=== PATIENT | male | born 1990 | race Caucasian/White ===

== ENCOUNTER 2019-07-11 19:34 | Inpatient (IN) | payer BC, OTHER ==
[2019-07-11] MEDS ORDERED: ONDANSETRON 4 MG TAB.RAPDIS PO ONE (20:14)
[2019-07-11] MEDS ORDERED: NORMAL SALINE 1000 ML 1,000 ML IV ONE (20:15)
--- NOTE | 2019-07-11 20:16 | ER Document Report ---
ED Medical Screen (RME) - General Stated Complaint: VOMITING,DIZZINESS,WEAKNESS,TROUBLE BREATHING Time Seen by Provider: 07/11/19 20:10 Primary Care Provider: ROEL EASTMAN DPM [Primary Care Provider] - Follow up as needed Mode of Arrival: Wheelchair Information source: Patient Notes: 29-year-old male with no past medical history presents emergency department with reports that he is vomited at least 6-8 times today. Reports symptoms started all of a sudden this afternoon when he was just sitting at home.. Reports he feels short of breath. EKG shows sinus tach. Denies fever although he feels warm. Denies diarrhea but his stomach feels like it may start having diarrhea. Reports his mom was sick a week ago with same symptoms. Has not had his flu vaccine. I have greeted and performed a rapid initial assessment of this patient. A comprehensive ED assessment and evaluation of the patient, analysis of test results and completion of the medical decision making process will be conducted by additional ED providers. Dictation of this chart was performed using voice recognition software; therefore, there may be some unintended grammatical errors. Doctor's Discharge - Discharge Referrals: ROEL EASTMAN DPM [Primary Care Provider] - Follow up as needed
[2019-07-11 21:09] LABS: HEMATOCRIT 49.2 % (37.9-51.0); HEMOGLOBIN 17.1 g/dL (13.5-17.0); MEAN CORPUSCULAR HEMOGLOBIN 32.4 pg (27.0-33.4); MEAN CORPUSCULAR HGB CONC 34.7 g/dL (32.0-36.0); MEAN CORPUSCULAR VOLUME 93 fl (80-97); PLATELET COUNT 230 10^3/uL (150-450); RED BLOOD COUNT 5.27 10^6/uL (4.35-5.55); RED CELL DISTRIBUTION WIDTH 13.3 % (11.5-14.0); WHITE BLOOD COUNT 8.6 10^3/uL (4.0-10.5)
--- NOTE | 2019-07-11 21:09 | RADIOLOGY REPORT (SQ) ---
EXAM DESCRIPTION: XR CHEST 2 VIEWS COMPLETED DATE/TME: 07/11/2019 20:15 CLINICAL HISTORY: 29 years, Male, sob COMPARISON: None. NUMBER OF VIEWS: Two TECHNIQUE: Frontal and lateral radiographs of the chest were obtained LIMITATIONS: None. FINDINGS: Cardiac and mediastinal contours are normal in appearance. Lungs are clear. No pleural effusion or pneumothorax. IMPRESSION: No acute disease. copyright 2010 [facility]- All Rights Reserved
[2019-07-11 21:19] LABS: A TYPE INFLUENZA AG NEGATIVE (NEGATIVE); B INFLUENZA AG NEGATIVE (NEGATIVE)
[2019-07-11] MEDS ORDERED: NORMAL SALINE IV ONE (21:20)
[2019-07-11 21:21] LABS: ALBUMIN 4.7 g/dL (3.5-5.0); ALKALINE PHOSPHATASE 60 U/L (38-126); ANION GAP 19 (5-19); ASPARTATE AMINO TRANSFERASE 28 U/L (17-59); BILIRUBIN,DIRECT 0.1 mg/dL (0.0-0.4); BLOOD UREA NITROGEN 21 mg/dL (7-20); CALCIUM 10.2 mg/dL (8.4-10.2); CARBON DIOXIDE 19 mmol/L (22-30); CHLORIDE 104 mmol/L (98-107); GLUCOSE 122 mg/dL (75-110); POTASSIUM 3.9 mmol/L (3.6-5.0); TOTAL PROTEIN 7.7 g/dL (6.3-8.2)
--- NOTE | 2019-07-11 21:31 | ER Document Report ---
ED General - General Chief Complaint: Nausea/Vomiting Stated Complaint: VOMITING,DIZZINESS,WEAKNESS,TROUBLE BREATHING Time Seen by Provider: 07/11/19 20:10 Primary Care Provider: ROEL EASTMAN DPM [ACTIVE STAFF] - Follow up as needed Mode of Arrival: Wheelchair TRAVEL OUTSIDE OF THE [place] IN LAST 30 DAYS: No - HPI Notes: Mr. Mota is a 29-year-old male with a chief complaint of generalized weakness nausea vomiting and diarrhea. This is a generally healthy male who is visiting his father who is an inpatient in this facility being treated in the ICU for urinary tract infection when he suddenly became ill and had to go into the bathroom and vomited twice. He attempted to drive himself home and had further episodes of vomiting and then had several loose watery stools. He feels generally weak and decided that he needed attention and came back to the emergency department. The patient takes some [id number] vitamins and is otherwise taking no regular medications. He says he is allergic to some type of a dental anesthetic agent. No other known allergies. He has a history of severe psoriasis but is no longer taking any type of medication for this. He denies any other past significant illnesses. - Related Data Allergies/Adverse Reactions: mepivacaine Allergy (Verified 07/11/19 20:38) Past Medical History - General Information source: Patient - Social History Smoking Status: Never Smoker Chew tobacco use (# tins/day): No Frequency of alcohol use: None Drug Abuse: None Family History: Reviewed & Not Pertinent Patient has suicidal ideation: No Patient has homicidal ideation: No Skin Medical History: Reports Hx Psoriasis Review of Systems - Review of Systems Notes: Constitutional: Low-grade tactile fever after his GI symptoms began this afternoon. Generalized weakness. HENT: Negative for sore throat. Eyes: Negative for visual changes. Cardiovascular: Negative for chest pain. Respiratory: Dry cough. Negative for shortness of breath. Gastrointestinal: As per HPI. Genitourinary: Negative for dysuria. Musculoskeletal: Negative for back pain. Skin: Chronic psoriatic rash. Neurological: Negative for headaches, focal weakness or numbness. 10 point ROS negative except as marked above and in HPI. Physical Exam - Vital signs Vitals: Temp Pulse Resp BP Pulse Ox 98.4 F 144 H 24 H 97/65 L 100 07/11/19 20:07 07/11/19 20:07 07/11/19 20:07 07/11/19 20:07 07/11/19 20:07 - Notes Notes: GENERAL: Slender male of approximately stated age who appears pale and acutely ill. SKIN: Pale and cool to touch. Prominent chronic psoriatic rash especially over the scalp and hairline and over the left external ear. HEAD: Normocephalic atraumatic. EYES: PERRLA. Conjunctivae and sclerae clear. EARS: CANALS AND TMS CLEAR. NOSE: CLEAR. MOUTH: Tacky oral mucosa. Good dentition. No stridor or edema. No drooling. Throat: Injected. NECK: Supple. No masses or thyromegaly. No adenopathy. Carotids 2+ without bruits. No JVD. BACK: Symmetrical without tenderness. CHEST: Respirations unlabored. Breath sounds clear and symmetrical. HEART: Tachycardic. Regular rhythm. No murmur gallop or rub. ABDOMEN: Soft nontender without masses, organomegaly or rebound. Bowel sounds hyperactive. No bruits. GENITALIA: Deferred. EXTREMITIES: No edema. No calf tenderness. Cap refill less than 1.5 seconds. Dorsalis pedis and posterior tibial pulses 2+ and symmetrical. NEUROLOGICAL: GCS 15. Alert and oriented x3. Normal gait. Fluent speech. Cranial nerves II through XII intact. Sensorimotor and cerebellar normal. Normal tone. Psychiatric: Anxious. Course - Vital Signs Vital signs: Temp Pulse Resp BP Pulse Ox 101 F H 127 H 19 96/44 L 100 07/11/19 23:05 07/11/19 20:57 07/11/19 22:44 07/11/19 22:44 07/11/19 22:44 - Laboratory Result Diagrams: 07/11/19 20:42 07/11/19 20:42 Laboratory results interpreted by me: 07/11/19 07/11/19 07/11/19 20:42 20:42 21:40 Hgb 17.1 H Seg Neuts % (Manual) 82 H Band Neutrophils % 7 H Lymphocytes % (Manual) 5 L PT VBG pH VBG pCO2 VBG HCO3 Carbon Dioxide 19 L BUN 21 H Glucose 122 H Lactic Acid (Sepsis) 6.4 H 07/11/19 07/11/19 21:40 21:55 Hgb Seg Neuts % (Manual) Band Neutrophils % Lymphocytes % (Manual) PT 17.7 H VBG pH 7.63 H VBG pCO2 18.3 L* VBG HCO3 18.7 L Carbon Dioxide BUN Glucose Lactic Acid (Sepsis) Critical Care Note - Critical Care Note Total time excluding time spent on procedures (mins): 75 Comments: This young man presented with sepsis. Source is undetermined although I am suspicious that this is probably staphylococcal infection from the scan as he has widespread psoriasis and is been otherwise healthy. He has a markedly elevated lactate level and his CO2 is low. Blood cultures have been drawn. He was transiently hypotensive but his blood pressure has been restored with IV fluid bolus 30 cc/kg normal saline. Flu swab was negative. His total white count is normal but he has a 7% bandemia. He has been empirically treated with IV vancomycin and Zosyn. His systolic pressure is 95. His pulse pressure still widened with a diastolic of 44. Case was discussed with Dr. Norbert Brownlee on-call for ICU and is agreed that patient will be admitted to the ICU. Discharge - Discharge Clinical Impression: Sepsis Qualifiers: Sepsis type: sepsis due to unspecified organism Sepsis acute organ dysfunction status: unspecified Qualified Code(s): A41.9 - Sepsis, unspecified organism Condition: Serious Disposition: ADMITTED INPATIENT Admitting Provider: [facility] Admitted: ICU Referrals: ROEL EASTMAN DPM [ACTIVE STAFF] - Follow up as needed
[2019-07-11 21:41] LABS: ABSOLUTE LYMPHOCYTES# (MANUAL) 0.6 10^3/uL (0.5-4.7); ABSOLUTE MONOCYTES # (MANUAL) 0.3 10^3/uL (0.1-1.4); BAND NEUTROPHILS % (MANUAL) 7 % (3-5); BASOPHILS % (MANUAL) 0 % (0-2); EOSINOPHILS % (MANUAL) 0 % (0-6); LYMPHOCYTES % (MANUAL) 5 % (13-45); MONOCYTES % (MANUAL) 4 % (3-13); SEGMENTED NEUTROPHILS % (MAN) 82 % (42-78); TOTAL CELLS COUNTED 100
[2019-07-11 21:42] LABS: PLATELET COMMENT ADEQUATE; RBC MORPHOLOGY COMMENT NORMO-CYTIC/CHROMIC
[2019-07-11] MEDS ORDERED: PIPERACILLIN/TAZOBACTAM 3.375 GM VIAL IV ONE (21:54)
[2019-07-11] MEDS ORDERED: VANCOMYCIN HCL INJ 1000 MG VIAL IV ONE (21:54)
[2019-07-11 22:14] LABS: VENOUS BLOOD BASE EXCESS 0.6 mmol/L; VENOUS BLOOD HCO3 18.7 mmol/L (20-32); VENOUS BLOOD PH 7.63 (7.30-7.42)
[2019-07-11 22:16] LABS: INTERNATIONAL RATION (INR) 1.44; PROTHROMBIN TIME 17.7 SEC (11.4-15.4)
[2019-07-11 22:16] LABS: VENOUS BLOOD PCO2 18.3 mmHg (35-63)
[2019-07-11] MEDS ORDERED: NORMAL SALINE 1000 ML 1,000 ML IV PRN (22:49)
[2019-07-11] MEDS ORDERED: METOCLOPRAMIDE HCL INJ/PF 10 MG/2 ML SDV IV ONE (23:09)
[2019-07-11] MEDS ORDERED: ACETAMINOPHEN 325 MG TABLET PO ONE (23:11)
[2019-07-11 23:51] LABS: APPEARANCE,URINE SLIGHTLY-CLOUDY; BILIRUBIN,URINE NEGATIVE (NEGATIVE); COLOR,URINE YELLOW; GLUCOSE, URINE NEGATIVE (NEGATIVE); KETONES,URINE 80 mg/dL (NEGATIVE); LEUKOCYTE ESTERASE,URINE NEGATIVE (NEGATIVE); NITRITE,URINE NEGATIVE (NEGATIVE); PROTEIN,URINE NEGATIVE (NEGATIVE); URINE SPECIFIC GRAVITY 1.021; UROBILINOGEN,URINE NEGATIVE mg/dL (<2.0)
[2019-07-12] MEDS ORDERED: DEXTROSE 5%-WATER 250 ML with NOREPINEPHRINE BITARTRATE 4 MG IV PRN ×2 (00:11)
[2019-07-12] MEDS ORDERED: NOREPINEPHRINE BITARTRATE INJ/PF 4 MG/4 ML SDV IV ONE (00:15)
[2019-07-12] MEDS ORDERED: NORMAL SALINE 1000 ML 1,000 ML IV PRN (01:06)
[2019-07-12] MEDS ORDERED: PIPERACILLIN/TAZOBACTAM 3.375 GM VIAL IV ONE (01:17)
[2019-07-12] MEDS ORDERED: VANCOMYCIN HCL INJ 1000 MG VIAL IV ONE (01:18)
--- NOTE | 2019-07-12 02:46 | CRITICAL CARE ADMISSION REPORT ---
<FEROZ DEWITT - Last Filed: 07/12/19 02:15> HPI Date:: 07/12/19 Time:: 01:15 Reason for ICU Reason:: Septic Shock HPI: 29-year-old gentleman with a history only of psoriasis. He presented to the ED with nausea vomiting and general malaise. Patient was found to be hypotensive with a lactate of 6.4 and HCO3 of 19. He was also febrile to 102 and mildly tachycardic. While in the emergency department, he received normal saline as well as norepinephrine but remained hypotensive. Upon transfer to the intensive care unit, patient's blood pressure began to improve slightly and now has a MAP of 67. Earlier, in the ED, he is stated that he felt short of breath but has had no difficulty breathing and has required no supplemental oxygen. X-ray shows no infiltrates and breath sounds remain clear. History obtained from:: Patient and his mother. - Diagnosis/Plan (1) Sepsis Qualifiers: Sepsis type: sepsis due to unspecified organism Sepsis acute organ dysfunction status: with acute organ dysfunction Severe sepsis acute organ dysfunction type: unspecified Severe sepsis shock status: with septic shock Qualified Code(s): A41.9 - Sepsis, unspecified organism; R65.21 - Severe sepsis with septic shock Is this a current diagnosis for this admission?: Yes Plan: Septic shock: Maintain mean arterial pressure greater or equal to 70 mmHg. Continue norepinephrine. If escalating dose required, family has consented to central line placement. Current access is large bore antecubital line. Administer 1 L normal saline and start LR at 150 mL an hour. Continue Vancomycin and Zosyn. Will also check cortisone level and replete if needed. Past Medical History Skin Medical History: Reports: Psoriasis Social/Family History - Social History Smoking Status: Never Smoker - Medication/Allergies Allergies/Adverse Reactions: mepivacaine Allergy (Verified 07/11/19 20:38) Physical Exam Vital Signs: Temp Pulse Resp BP Pulse Ox 102.6 F H 127 H 14 87/39 L 94 07/12/19 00:09 07/11/19 20:57 07/12/19 00:01 07/12/19 00:01 07/12/19 00:01 Intake & Output 07/10/19 07/11/19 07/12/19 06:59 06:59 06:59 Intake Total 2620 Balance 2620 Weight 54 kg Weight/Height Weight 54 kg Height 5 ft 8 in Laboratory/Radiographs Laboratory Results: 07/11/19 20:42 07/11/19 20:42 07/11/19 07/11/19 07/11/19 20:42 20:42 21:40 WBC 8.6 RBC 5.27 Hgb 17.1 H Hct 49.2 MCV 93 MCH 32.4 MCHC 34.7 RDW 13.3 Plt Count 230 Seg Neutrophils % Not Reportable VBG pH 7.63 H VBG pCO2 18.3 L* VBG HCO3 18.7 L VBG Base Excess 0.6 Sodium 141.7 Potassium 3.9 Chloride 104 Carbon Dioxide 19 L Anion Gap 19 BUN 21 H Creatinine 0.99 Est GFR ( Amer) > 60 Glucose 122 H Calcium 10.2 Total Bilirubin 1.0 AST 28 Alkaline Phosphatase 60 Total Protein 7.7 Albumin 4.7 Urine Color Urine Appearance Urine pH Ur Specific [place] Urine Protein Urine Glucose (UA) Urine Ketones Urine Blood Urine Nitrite Ur Leukocyte Esterase Urine WBC (Auto) Urine RBC (Auto) 07/11/19 23:30 WBC RBC Hgb Hct MCV MCH MCHC RDW Plt Count Seg Neutrophils % VBG pH VBG pCO2 VBG HCO3 VBG Base Excess Sodium Potassium Chloride Carbon Dioxide Anion Gap BUN Creatinine Est GFR ( Amer) Glucose Calcium Total Bilirubin AST Alkaline Phosphatase Total Protein Albumin Urine Color YELLOW Urine Appearance SLIGHTLY-CLOUDY Urine pH 5.0 Ur Specific [place] 1.021 Urine Protein NEGATIVE Urine Glucose (UA) NEGATIVE Urine Ketones 80 H Urine Blood NEGATIVE Urine Nitrite NEGATIVE Ur Leukocyte Esterase NEGATIVE Urine WBC (Auto) 1 Urine RBC (Auto) 0 Impressions: Chest X-Ray 07/11/19 20:15 IMPRESSION: No acute disease. copyright 2010 [facility] [employer]- All Rights Reserved Critical Time Critical Time (minutes): 75 -: The care of a critically ill patient is dynamic. This note represents a static moment in the admission process. orders and treatments may be given s imulataneously and urgentl, and time is not provider service representative of the treatment process. This patient requires Critical Care secondary to life threating organ or limb dysfunction. Without the need for Critical Care services, the patient is at risk for increasid mortality and morbidity. <RADHA VIEYRA - Last Filed: 07/12/19 07:48> HPI - . Plan Summary: I personally saw and evaluated the patient in the ICU after admission by CLIFF Dewitt I agree with the findings plan and care. Please see my supplemental note which accompanies this admission note. Physical Exam Vital Signs: Temp Pulse Resp BP Pulse Ox 102.4 F H 94 12 105/56 L 100 07/12/19 06:00 07/12/19 00:47 07/12/19 06:19 07/12/19 06:19 07/12/19 06:19 Intake & Output 07/11/19 07/12/19 07/13/19 06:59 06:59 06:59 Intake Total 3806 Balance 3806 Weight 53.4 kg Weight/Height Weight 53.4 kg Height 5 ft 8 in Laboratory/Radiographs Laboratory Results: 07/11/19 20:42 07/11/19 20:42 07/11/19 07/11/19 07/11/19 20:42 20:42 21:40 WBC 8.6 RBC 5.27 Hgb 17.1 H Hct 49.2 MCV 93 MCH 32.4 MCHC 34.7 RDW 13.3 Plt Count 230 Seg Neutrophils % Not Reportable VBG pH 7.63 H VBG pCO2 18.3 L* VBG HCO3 18.7 L VBG Base Excess 0.6 Sodium 141.7 Potassium 3.9 Chloride 104 Carbon Dioxide 19 L Anion Gap 19 BUN 21 H Creatinine 0.99 Est GFR ( Amer) > 60 Glucose 122 H Calcium 10.2 Total Bilirubin 1.0 AST 28 Alkaline Phosphatase 60 Total Protein 7.7 Albumin 4.7 Urine Color Urine Appearance Urine pH Ur Specific [place] Urine Protein Urine Glucose (UA) Urine Ketones Urine Blood Urine Nitrite Ur Leukocyte Esterase Urine WBC (Auto) Urine RBC (Auto) 07/11/19 23:30 WBC RBC Hgb Hct MCV MCH MCHC RDW Plt Count Seg Neutrophils % VBG pH VBG pCO2 VBG HCO3 VBG Base Excess Sodium Potassium Chloride Carbon Dioxide Anion Gap BUN Creatinine Est GFR ( Amer) Glucose Calcium Total Bilirubin AST Alkaline Phosphatase Total Protein Albumin Urine Color YELLOW Urine Appearance SLIGHTLY-CLOUDY Urine pH 5.0 Ur Specific [place] 1.021 Urine Protein NEGATIVE Urine Glucose (UA) NEGATIVE Urine Ketones 80 H Urine Blood NEGATIVE Urine Nitrite NEGATIVE Ur Leukocyte Esterase NEGATIVE Urine WBC (Auto) 1 Urine RBC (Auto) 0 Impressions: Chest X-Ray 07/11/19 20:15 IMPRESSION: No acute disease. copyright 2010 [facility]- All Rights Reserved Critical Time -: The care of a critically ill patient is dynamic. This note represents a static moment in the admission process. orders and treatments may be given simulataneously and urgentl, and time is not provider service representative of the treatment process. This patient requires Critical Care secondary to life threating organ or limb dysfunction. Without the need for Critical Care services, the patient is at risk for increasid mortality and morbidity.
[2019-07-12] MEDS: ACETAMINOPHEN 325 MG TABLET PO PRN (06:25)
[2019-07-12] MEDS: ONDANSETRON HCL INJ/PF 4 MG/2 ML SDV IV PRN ×2 (06:47→18:00)
[2019-07-12] MEDS: RINGERS SOLUTION,LACTATED 1,000 ML IV PRN ×2 (06:52→22:21)
--- NOTE | 2019-07-12 08:03 | EKG REPORT ---
SEVERITY:- BORDERLINE ECG - SINUS TACHYCARDIA NONSPECIFIC ST-T CHANGES- INFERIOR LEADS : Confirmed by: Donaldo Holder MD 12-Jul-2019 08:03:11
--- NOTE | 2019-07-12 08:04 | EKG REPORT ---
SEVERITY:- ABNORMAL ECG - SINUS TACHYCARDIA DENISHA, CONSIDER BIATRIAL ABNORMALITIES NONSPECIFIC ST-T CHANGES- INFERIOR LEADS : Confirmed by: Donaldo Holder MD 12-Jul-2019 08:03:48
[2019-07-12] MEDS ORDERED: ALBUMIN HUMAN 500 ML IV ONE (09:00)
[2019-07-12 10:44] LABS: URINE AMPHETAMINES SCREEN NEGATIVE; URINE BARBITURATES SCREEN NEGATIVE; URINE BENZODIAZEPINES SCREEN NEGATIVE; URINE COCAINE SCREEN NEGATIVE; URINE MARIJUANA (THC) SCREEN NEGATIVE; URINE METHADONE SCREEN NEGATIVE; URINE PHENCYCLIDINE SCREEN NEGATIVE
[2019-07-12 11:25] LABS: ARTERIAL BLOOD H2CO3 1.13 mmol/L (1.05-1.35); ARTERIAL BLOOD HCO3 22.5 mmol/L (20-24); ARTERIAL BLOOD PCO2 37.5 mmHg (35-45); ARTERIAL BLOOD PO2 108.3 mmHg (80-100); ARTERIAL BLOOD TOTAL CO2 23.7 mmol/L (23-27)
[2019-07-12 11:26] LABS: ARTERIAL BLOOD FIO2 ROOM AIR
[2019-07-12] MEDS: HEPARIN SOD (PORCINE) 5,000 UNIT/ML 1 ML VIAL SUBCUT SCH ×2 (12:33→22:18)
--- NOTE | 2019-07-12 13:14 | Progress Note ---
Provider Note Provider Note: Sepsis admission follow-up Progress Note Patient seen in follow-up after admission for hypotension, tachycardia, and lactic acidosis noticed with sepsis and shock. From a mental status standpoint he is not encephalopathic and is at his baseline mental status. His lactic acidosis has resolved. He is making urine and has had no evidence for acute renal failure. Repeat ABG shows solve of alkalosis in the first ABG may have been spurious. His blood pressure is still low normal and he is been given an additional dose of albumin with overall improvement. No source has been found but the expectation is that he will have gram-positive bacteremia. Patient has significant crisis however none of his lesions appear to be erythematous or infected. No other source has been determined. On examination patient has no spinous process tenderness. No sinus discharge, no pharyngeal erythema. No evidence for nuchal rigidity or meningismus. Heart shows regular rate and rhythm no audible murmur or gallops. Lungs are clear to auscultation. Abdomen is soft nontender nondistended no distinct tenderness no masses no organomegaly. Skin shows moderate psoriatic plaques on the dorsal surfaces of the forearms. No erythema discharge. There is no mottling discoloration rashes or mottling. Pulses are 2+/2+ in both the upper and lower extremities. Neurologic shows no encephalopathy. Patient has quiet flat affect. Fouzia Coma Scale is 15 Patient is on broad-spectrum antibiotics including vancomycin. Temp Pulse Resp BP Pulse Ox 98.7 F 80 12 98/63 L 100 07/12/19 12:00 07/12/19 12:00 07/12/19 12:00 07/12/19 12:00 07/12/19 12:00 Intake & Output 07/11/19 07/12/19 07/13/19 06:59 06:59 06:59 Intake Total 3806 1238 Output Total 600 Balance 3806 638 Weight 53.4 kg Weight/Height Weight 53.4 kg Height 5 ft 8 in Follow-up labs Labs- All tests 24 hr 07/11/19 07/11/19 07/11/19 20:42 20:42 20:42 WBC 8.6 RBC 5.27 Hgb 17.1 H Hct 49.2 MCV 93 MCH 32.4 MCHC 34.7 RDW 13.3 Plt Count 230 Lymph % (Auto) Not Reportable [place] % (Auto) Not Reportable Eos % (Auto) Not Reportable Baso % (Auto) Not Reportable Absolute Neuts (auto) Not Reportable Absolute Lymphs (auto) Not Reportable Absolute Monos (auto) Not Reportable Absolute Eos (auto) Not Reportable Absolute Basos (auto) Not Reportable Total Counted 100 Seg Neutrophils % Not Reportable Seg Neuts % (Manual) 82 H Band Neutrophils % 7 H Lymphocytes % (Manual) 5 L Atypical Lymphs % 2 Monocytes % (Manual) 4 Eosinophils % (Manual) 0 Basophils % (Manual) 0 Abs Neuts (Manual) 7.7 Abs Lymphs (Manual) 0.6 Abs Monocytes (Manual) 0.3 Absolute Eos (Manual) 0.0 Abs Basophils (Manual) 0.0 Platelet Comment ADEQUATE RBC Morph Comment NORMO-CYTIC/CHROMIC PT INR Carbonic Acid HCO3/H2CO3 Ratio ABG pH ABG pCO2 ABG pO2 ABG HCO3 ABG Total CO2 ABG O2 Saturation ABG Base Excess VBG pH VBG pCO2 VBG HCO3 VBG Base Excess FiO2 Sodium 141.7 Potassium 3.9 Chloride 104 Carbon Dioxide 19 L Anion Gap 19 BUN 21 H Creatinine 0.99 Est GFR ( Amer) > 60 Est GFR (MDRD) Non-Af > 60 Glucose 122 H POC Glucose Lactic Acid (Sepsis) Calcium 10.2 Total Bilirubin 1.0 Direct Bilirubin 0.1 Neonat Total Bilirubin Not Reportable Neonat Direct Bilirubin Not Reportable Neonat Indirect Bili Not Reportable AST 28 ALT 25 Alkaline Phosphatase 60 Total Protein 7.7 Albumin 4.7 Random Cortisol Urine Color Urine Appearance Urine pH Ur Specific [place] Urine Protein Urine Glucose (UA) Urine Ketones Urine Blood Urine Nitrite Urine Bilirubin Urine Urobilinogen Ur Leukocyte Esterase Urine WBC (Auto) Urine RBC (Auto) U Hyaline Cast (Auto) Squamous Epi Cells Auto Urine Mucus (Auto) Urine Ascorbic Acid Urine Opiates Screen Urine Methadone Screen Ur Barbiturates Screen Ur Phencyclidine Scrn Ur Amphetamines Screen U Benzodiazepines Scrn Urine Cocaine Screen U Marijuana (THC) Screen Influenza A (Rapid) NEGATIVE Influenza B (Rapid) NEGATIVE 07/11/19 07/11/19 07/11/19 20:53 20:53 21:40 WBC RBC Hgb Hct MCV MCH MCHC RDW Plt Count Lymph % (Auto) [place] % (Auto) Eos % (Auto) Baso % (Auto) Absolute Neuts (auto) Absolute Lymphs (auto) Absolute Monos (auto) Absolute Eos (auto) Absolute Basos (auto) Total Counted Seg Neutrophils % Seg Neuts % (Manual) Band Neutrophils % Lymphocytes % (Manual) Atypical Lymphs % Monocytes % (Manual) Eosinophils % (Manual) Basophils % (Manual) Abs Neuts (Manual) Abs Lymphs (Manual) Abs Monocytes (Manual) Absolute Eos (Manual) Abs Basophils (Manual) Platelet Comment RBC Morph Comment PT INR Carbonic Acid HCO3/H2CO3 Ratio ABG pH ABG pCO2 ABG pO2 ABG HCO3 ABG Total CO2 ABG O2 Saturation ABG Base Excess VBG pH VBG pCO2 VBG HCO3 VBG Base Excess FiO2 Sodium Potassium Chloride Carbon Dioxide Anion Gap BUN Creatinine Est GFR ( Amer) Est GFR (MDRD) Non-Af Glucose POC Glucose 99 Lactic Acid (Sepsis) 6.4 H Calcium Total Bilirubin Direct Bilirubin Neonat Total Bilirubin Neonat Direct Bilirubin Neonat Indirect Bili AST ALT Alkaline Phosphatase Total Protein Albumin Random Cortisol 58.90 Urine Color Urine Appearance Urine pH Ur Specific [place] Urine Protein Urine Glucose (UA) Urine Ketones Urine Blood Urine Nitrite Urine Bilirubin Urine Urobilinogen Ur Leukocyte Esterase Urine WBC (Auto) Urine RBC (Auto) U Hyaline Cast (Auto) Squamous Epi Cells Auto Urine Mucus (Auto) Urine Ascorbic Acid Urine Opiates Screen Urine Methadone Screen Ur Barbiturates Screen Ur Phencyclidine Scrn Ur Amphetamines Screen U Benzodiazepines Scrn Urine Cocaine Screen U Marijuana (THC) Screen Influenza A (Rapid) Influenza B (Rapid) 07/11/19 07/11/19 07/11/19 21:40 21:55 23:30 WBC RBC Hgb Hct MCV MCH MCHC RDW Plt Count Lymph % (Auto) [place] % (Auto) Eos % (Auto) Baso % (Auto) Absolute Neuts (auto) Absolute Lymphs (auto) Absolute Monos (auto) Absolute Eos (auto) Absolute Basos (auto) Total Counted Seg Neutrophils % Seg Neuts % (Manual) Band Neutrophils % Lymphocytes % (Manual) Atypical Lymphs % Monocytes % (Manual) Eosinophils % (Manual) Basophils % (Manual) Abs Neuts (Manual) Abs Lymphs (Manual) Abs Monocytes (Manual) Absolute Eos (Manual) Abs Basophils (Manual) Platelet Comment RBC Morph Comment PT 17.7 H INR 1.44 Carbonic Acid HCO3/H2CO3 Ratio ABG pH ABG pCO2 ABG pO2 ABG HCO3 ABG Total CO2 ABG O2 Saturation ABG Base Excess VBG pH 7.63 H VBG pCO2 18.3 L* VBG HCO3 18.7 L VBG Base Excess 0.6 FiO2 Sodium Potassium Chloride Carbon Dioxide Anion Gap BUN Creatinine Est GFR ( Amer) Est GFR (MDRD) Non-Af Glucose POC Glucose Lactic Acid (Sepsis) Calcium Total Bilirubin Direct Bilirubin Neonat Total Bilirubin Neonat Direct Bilirubin Neonat Indirect Bili AST ALT Alkaline Phosphatase Total Protein Albumin Random Cortisol Urine Color YELLOW Urine Appearance SLIGHTLY-CLOUDY Urine pH 5.0 Ur Specific [place] 1.021 Urine Protein NEGATIVE Urine Glucose (UA) NEGATIVE Urine Ketones 80 H Urine Blood NEGATIVE Urine Nitrite NEGATIVE Urine Bilirubin NEGATIVE Urine Urobilinogen NEGATIVE Ur Leukocyte Esterase NEGATIVE Urine WBC (Auto) 1 Urine RBC (Auto) 0 U Hyaline Cast (Auto) 9 Squamous Epi Cells Auto <1 Urine Mucus (Auto) FEW Urine Ascorbic Acid NEGATIVE Urine Opiates Screen Urine Methadone Screen Ur Barbiturates Screen Ur Phencyclidine Scrn Ur Amphetamines Screen U Benzodiazepines Scrn Urine Cocaine Screen U Marijuana (THC) Screen Influenza A (Rapid) Influenza B (Rapid) 07/11/19 07/12/19 07/12/19 23:30 01:39 10:40 WBC RBC Hgb Hct MCV MCH MCHC RDW Plt Count Lymph % (Auto) [place] % (Auto) Eos % (Auto) Baso % (Auto) Absolute Neuts (auto) Absolute Lymphs (auto) Absolute Monos (auto) Absolute Eos (auto) Absolute Basos (auto) Total Counted Seg Neutrophils % Seg Neuts % (Manual) Band Neutrophils % Lymphocytes % (Manual) Atypical Lymphs % Monocytes % (Manual) Eosinophils % (Manual) Basophils % (Manual) Abs Neuts (Manual) Abs Lymphs (Manual) Abs Monocytes (Manual) Absolute Eos (Manual) Abs Basophils (Manual) Platelet Comment RBC Morph Comment PT INR Carbonic Acid 1.13 HCO3/H2CO3 Ratio 19:1 ABG pH 7.40 ABG pCO2 37.5 ABG pO2 108.3 H ABG HCO3 22.5 ABG Total CO2 23.7 ABG O2 Saturation 98.0 ABG Base Excess -2.0 VBG pH VBG pCO2 VBG HCO3 VBG Base Excess FiO2 ROOM AIR Sodium Potassium Chloride Carbon Dioxide Anion Gap BUN Creatinine Est GFR ( Amer) Est GFR (MDRD) Non-Af Glucose POC Glucose Lactic Acid (Sepsis) 2.0 Calcium Total Bilirubin Direct Bilirubin Neonat Total Bilirubin Neonat Direct Bilirubin Neonat Indirect Bili AST ALT Alkaline Phosphatase Total Protein Albumin Random Cortisol Urine Color Urine Appearance Urine pH Ur Specific [place] Urine Protein Urine Glucose (UA) Urine Ketones Urine Blood Urine Nitrite Urine Bilirubin Urine Urobilinogen Ur Leukocyte Esterase Urine WBC (Auto) Urine RBC (Auto) U Hyaline Cast (Auto) Squamous Epi Cells Auto Urine Mucus (Auto) Urine Ascorbic Acid Urine Opiates Screen NEGATIVE Urine Methadone Screen NEGATIVE Ur Barbiturates Screen NEGATIVE Ur Phencyclidine Scrn NEGATIVE Ur Amphetamines Screen NEGATIVE U Benzodiazepines Scrn NEGATIVE Urine Cocaine Screen NEGATIVE U Marijuana (THC) Screen NEGATIVE Influenza A (Rapid) Influenza B (Rapid) ACTIVE MEDICATIONS Generic Name Dose Route Start Last Admin Trade Name Freq PRN Reason Stop Dose Admin Acetaminophen 650 mg 07/12/19 01:06 07/12/19 06:25 Tylenol 325 Mg Tablet PO 08/11/19 01:05 650 mg Q4HP PRN Administration FEVER > 102 Heparin Sodium (Porcine) 5,000 unit 07/12/19 11:00 07/12/19 12:33 Heparin Inj 5,000 Units/Ml 1 Ml Vial SUBCUT 08/11/19 10:59 5,000 unit Q8 LEONIDAS Administration Norepinephrine Bitartrate 4 mg 250 mls @ 0 mls/hr 07/12/19 00:11 07/12/19 05:35 / Dextrose IV 08/11/19 00:10 0 mcg/min CONTINUOUS PRN 0 mls/hr THIS MED IS NOT "PRN" Titration Protocol Titrate Lactated Ringer's 1,000 mls @ 150 mls/hr 07/12/19 06:28 07/12/19 06:52 Lactated Ringers 1000 Ml Iv Soln IV 08/11/19 06:27 150 mls/hr CONTINUOUS PRN Administration THIS MED IS NOT "PRN" Ondansetron HCl 4 mg 07/12/19 06:29 07/12/19 06:47 Zofran Inj/Pf 4 Mg/2 Ml Sdv IV 08/11/19 06:28 4 mg Q8HP PRN Administration FOR NAUSEA/VOMITING Sodium Chloride 2.5 ml 07/12/19 01:30 07/12/19 06:33 Saline Flush 2.5 Ml Monoject Prefil Syrin IV 08/11/19 01:29 Not Given Q8 LEONIDAS Chest X-Ray 07/11/19 20:15 IMPRESSION: No acute disease. Impression and plan #1: Sepsis with shock #2.: Lactic acidosis-improved #3: Suspected bacteremia #4.: Psoriasis, chronic affected source entrance #5: Dehydration and hemoconcentration secondary to above, improving #6: Moderate protein calorie malnutrition unknown cause We will continue to watch for bacteremia. Follow microbiological studies. Continue supportive care with IV fluids. Continue antibiotics until source is controlled. Add DVT chemical prophylaxis. No need for stress ulcer prophylaxis. Total critical care time excluding any procedures 60 minutes including multidisciplinary rounds and follow-up examination
[2019-07-13 02:20] LABS: C DIFFICILE GDH NEGATIVE (NEGATIVE)
[2019-07-13] MEDS: ACETAMINOPHEN 325 MG TABLET PO PRN (03:52)
[2019-07-13 04:49] LABS: INTERNATIONAL RATION (INR) 1.25; PROTHROMBIN TIME 15.8 SEC (11.4-15.4)
[2019-07-13 04:51] LABS: ABSOLUTE LYMPHOCYTES (AUTO) 0.7 10^3/uL (0.5-4.7); ABSOLUTE MONOCYTES (AUTO) 0.4 10^3/uL (0.1-1.4); ABSOLUTE NEUT (AUTO) 4.1 10^3/uL (1.7-8.2); BASOPHILS % (AUTO) 0.3 % (0-2); EOSINOPHILS % (AUTO) 0.7 % (0-6); HEMATOCRIT 36.9 % (37.9-51.0); LYMPHOCYTES % (AUTO) 12.7 % (13-45); MEAN CORPUSCULAR HEMOGLOBIN 32.3 pg (27.0-33.4); MEAN CORPUSCULAR VOLUME 92 fl (80-97); MONOCYTES % (AUTO) 8.4 % (3-13); PLATELET COUNT 104 10^3/uL (150-450); RED CELL DISTRIBUTION WIDTH 12.8 % (11.5-14.0); SEGMENTED NEUTROPHILS % (AUTO) 77.9 % (42-78); TOTAL CELLS COUNTED % (AUTO) 100 %; WHITE BLOOD COUNT 5.3 10^3/uL (4.0-10.5)
[2019-07-13 04:59] LABS: HEMOGLOBIN 12.9 g/dL (13.5-17.0)
[2019-07-13 05:09] LABS: ALBUMIN 2.8 g/dL (3.5-5.0); ALKALINE PHOSPHATASE 39 U/L (38-126); ANION GAP 7 (5-19); ASPARTATE AMINO TRANSFERASE 39 U/L (17-59); BILIRUBIN,DIRECT 0.1 mg/dL (0.0-0.4); BILIRUBIN,TOTAL 0.7 mg/dL (0.2-1.3); BLOOD UREA NITROGEN 7 mg/dL (7-20); CALCIUM 7.7 mg/dL (8.4-10.2); CARBON DIOXIDE 26 mmol/L (22-30); CHLORIDE 100 mmol/L (98-107); GLUCOSE 87 mg/dL (75-110)
[2019-07-13 05:11] LABS: POTASSIUM 2.9 mmol/L (3.6-5.0)
[2019-07-13] MEDS ORDERED: POTASSIUM CHLORIDE 10 MEQ CAPSULE.ER PO ONE (06:00)
[2019-07-13] MEDS ORDERED: POTASSIUM PHOS,M-BASIC-D-BASIC 30 MMOL in NORMAL SALINE 500 ML IV ONE ×2 (06:00→09:00)
[2019-07-13] MEDS ORDERED: MAGNESIUM SULFATE PF/INJ 40 MEQ/10 ML SDV IV ONE (06:00)
[2019-07-13] MEDS: HEPARIN SOD (PORCINE) 5,000 UNIT/ML 1 ML VIAL SUBCUT SCH (06:15)
[2019-07-13] MEDS ORDERED: MAGNESIUM SULFATE 1 GM/D5W 100 ML IV SCH (08:00)
[2019-07-13] MEDS: RINGERS SOLUTION,LACTATED 1,000 ML IV PRN ×2 (08:49→17:00)
[2019-07-13] MEDS: MAGNESIUM SULFATE/D5W 1 GM/100 ML RTUPB IV SCH ×3 (08:49→11:52)
--- NOTE | 2019-07-13 09:14 | RADIOLOGY REPORT (SQ) ---
EXAM DESCRIPTION: CHEST SINGLE VIEW COMPLETED DATE/TIME: 07/13/2019 6:01 am REASON FOR STUDY: Possible pneumonia COMPARISON: PA and lateral views of the chest from 07/11/2019. EXAM PARAMETERS: NUMBER OF VIEWS: One view. TECHNIQUE: Single frontal radiographic view of the chest acquired. RADIATION DOSE: NA LIMITATIONS: None. FINDINGS: LUNGS AND PLEURA: No consolidation, pleural effusion or pneumothorax. MEDIASTINUM AND HILAR STRUCTURES: No mediastinal or hilar contour abnormality. HEART AND VASCULAR STRUCTURES: The cardiac silhouette and pulmonary vasculature are within normal leal its. BONES: No acute findings. HARDWARE: None in the chest. OTHER: No other finding. IMPRESSION: No acute cardiopulmonary process. TECHNICAL DOCUMENTATION: JOB ID: [id number] [employer]- All Rights Reserved Reading location - IP/workstation name: [email or web address]
--- NOTE | 2019-07-13 16:24 | PDOC CRITICAL CARE PROG REPORT ---
General Date:: 07/13/19 ICU Day:: 2 Ventilator Day:: 0 Hospital Day:: 2 Events in the past 12 to 24 Hours:: Hypotension has resolved. Significant diarrhea yesterday with gastric distension and borborygmus--all of which have improved. No fever, chills or rigors. Blood cultures negative Review of systems relevant to events:: No pharyngitis, chest pain, fever, abdominal pain. Diarrhea much improved. No melena or hematochezia. Reason for ICU Addmission:: Septic Shock - Medications: Medications reviewed and adjusted accordingly: Yes Vasopressors:: Discontinued Sedation:: None Physical Exam Vital Signs: Temp Pulse Resp BP Pulse Ox 101.9 F H 82 17 116/68 96 07/13/19 03:43 07/13/19 00:00 07/13/19 06:00 07/12/19 18:53 07/13/19 06:00 Intake & Output 07/12/19 07/13/19 07/14/19 06:59 06:59 06:59 Intake Total 3806 2238 Output Total 1400 Balance 3806 838 Weight 53.4 kg 55.3 kg Weight/Height Weight 55.3 kg Height 5 ft 8 in General appearance: PRESENT: no acute distress, cooperative, thin, well- developed, well-nourished Exam: Thin nontoxic 29-year-old white male no acute distress he is awake alert and oriented x3. Flat affect Head exam: PRESENT: atraumatic, normocephalic Eye exam: PRESENT: conjunctiva pink, EOMI, PERRLA. ABSENT: conjunctival injection, scleral icterus Mouth exam: PRESENT: moist, neck supple, tongue midline. ABSENT: dry mucosa Teeth exam: PRESENT: dental caries Throat exam: ABSENT: post pharyngeal erythema, tonsillar erythema, tonsillar exudate, tonsillogmegaly Neck exam: ABSENT: carotid bruit, JVD, lymphadenopathy, thyromegaly Respiratory exam: PRESENT: clear to auscultation kerri, unlabored. ABSENT: accessory muscle use, rales, rhonchi, tachypnea, wheezes Cardiovascular exam: PRESENT: RRR, +S1, +S2. ABSENT: diastolic murmur, rubs, systolic murmur Pulses: PRESENT: normal dorsalis pedis pul, +2 pedal pulses bilateral Vascular exam: PRESENT: normal capillary refill GI/Abdominal exam: PRESENT: normal bowel sounds, soft. ABSENT: distended, guarding, hyperactive bowel sounds, mass, organolmegaly, rebound, rigid, tenderness Rectal exam: PRESENT: deferred Gentrourinary exam: ABSENT: ecchymosis, erythema, lesions, scrotal swelling, indwelling catheter Extremities exam: ABSENT: pedal edema, tenderness Musculoskeletal exam: PRESENT: normal inspection. ABSENT: deformity, dislocation, tenderness Neurological exam: PRESENT: alert, awake, oriented to person, oriented to place, oriented to time, oriented to situation, CN II-XII grossly intact. ABSENT: motor sensory deficit Psychiatric exam: PRESENT: appropriate affect, flat affect, normal mood. ABSENT: homicidal ideation, suicidal ideation Focused psych exam: ABSENT: pressured speech, psychomotor agitation, restlessness Skin exam: PRESENT: dry, intact, normal color, warm. ABSENT: cyanosis, mottled, pallor, rash Laboratory/Radiographs Laboratory Results: 07/13/19 04:13 07/13/19 04:13 07/12/19 07/12/19 07/12/19 00:20 10:40 13:03 WBC RBC Hgb Hct MCV MCH MCHC RDW Plt Count Seg Neutrophils % Carbonic Acid 1.13 HCO3/H2CO3 Ratio 19:1 ABG pH 7.40 ABG pCO2 37.5 ABG pO2 108.3 H ABG HCO3 22.5 ABG O2 Saturation 98.0 ABG Base Excess -2.0 FiO2 ROOM AIR Sodium Potassium Chloride Carbon Dioxide Anion Gap BUN Creatinine Est GFR ( Amer) Glucose Calcium Phosphorus Magnesium Total Bilirubin AST Alkaline Phosphatase Ammonia Total Protein Albumin Amylase 36 Lipase 46.0 Stool for White Cells NO WBCs SEEN 07/13/19 07/13/19 07/13/19 04:13 04:13 04:13 WBC 5.3 RBC 4.00 L Hgb 12.9 L D Hct 36.9 L MCV 92 MCH 32.3 MCHC 35.0 RDW 12.8 Plt Count 104 L Seg Neutrophils % 77.9 Carbonic Acid HCO3/H2CO3 Ratio ABG pH ABG pCO2 ABG pO2 ABG HCO3 ABG O2 Saturation ABG Base Excess FiO2 Sodium 133.4 L Potassium 2.9 L* Chloride 100 Carbon Dioxide 26 Anion Gap 7 BUN 7 Creatinine 0.59 Est GFR ( Amer) > 60 Glucose 87 Calcium 7.7 L Phosphorus 2.0 L Magnesium 1.4 L Total Bilirubin 0.7 AST 39 Alkaline Phosphatase 39 Ammonia < 8.7 L Total Protein 5.0 L Albumin 2.8 L Amylase Lipase Stool for White Cells All labs, radiographs, diagnostic studies and EKGs were personally reviewed: Yes In addition, reports of radiographic and diagnostic studies were read: Yes Assessment and Plan - Diagnosis (1) Shock, septic Is this a current diagnosis for this admission?: Yes Plan: Improved and resolved. Supportive care (2) Viral gastroenteritis Is this a current diagnosis for this admission?: Yes Plan: Resolving (3) Lactic acidosis Is this a current diagnosis for this admission?: Yes Plan: Resolved (4) Diarrhea Qualifiers: Diarrhea type: unspecified type Qualified Code(s): R19.7 - Diarrhea, unspecified Is this a current diagnosis for this admission?: Yes Plan: Improved. Suspect viral enteritis (5) Dehydration determined by examination Is this a current diagnosis for this admission?: Yes Plan: Improved (6) Psoriasis Is this a current diagnosis for this admission?: Yes (7) Anemia Qualifiers: Anemia type: unspecified type Qualified Code(s): D64.9 - Anemia, unspecified Is this a current diagnosis for this admission?: Yes Plan: Had hemoconcentration from dehydration. Work up pending Plan Summary: 07.13.19: Patient has been improving steadily and consistently. His diarrhea has improved. He did endorse a significant amount of bowel borborygmus and diarrhea yesterday but all of this has essentially resolved. Have asked for patient to ambulate and will follow his conditioning after being ill. Patient has anemia after his resuscitation. This may be related to volume however B12, folate and iron profile has been done. Of note his MCV is normal. He is quite thin with a BMI of 18. He presented with a lower BMI and his weight has increased with the fluid that we have given him. He is tolerating diet and we will advance this as well. To be noted that the patient and other family members have had similar illness. Have discontinued antibiotics and will be vigilant to watch for any recrudescent illness. I felt this was necessary given the lack of culture positivity and diarrhea. Obviously C. difficile and other stool studies are negative. Still awaiting ova and parasite studies. 07.12.19: Patient seen in follow-up after admission for hypotension, tachycardia, and lactic acidosis noticed with sepsis and shock. From a mental status standpoint he is not encephalopathic and is at his baseline mental status. His lactic acidosis has resolved. He is making urine and has had no evidence for acute renal failure. Repeat ABG shows solve of alkalosis in the first ABG may have been spurious. His blood pressure is still low normal and he is been given an additional dose of albumin with overall improvement. No source has been found but the expectation is that he will have gram-positive bacteremia. Patient has significant crisis however none of his lesions appear to be erythematous or infected. No other source has been determined. On examination patient has no spinous process tenderness. No sinus discharge, no pharyngeal erythema. No evidence for nuchal rigidity or meningismus. Heart shows regular rate and rhythm no audible murmur or gallops. Lungs are clear to auscultation. Abdomen is soft nontender nondistended no distinct tenderness no masses no organomegaly. Skin shows moderate psoriatic plaques on the dorsal surfaces of the forearms. No erythema discharge. There is no mottling discoloration rashes or mottling. Pulses are 2+/2+ in both the upper and lower extremities. Neurologic shows no encephalopathy. Patient has quiet flat affect. Fouzia Coma Scale is 15 Patient is on broad-spectrum antibiotics including vancomycin Critical Time Critical Time (minutes): 0 - [id number] Level of Care: ICU Anticipated discharge: Home Within: within 48 hours -: 1. The care of a critical patient is a dynamic process. This note is a guest services representative synopsis but static in nature. The timeframe for treatments given in order is not necessary the actual time these treatments may have been done. 2. This patient requires critical care secondary to ongoing requirements for therapy not offered or safe outside the critical care environment. Transfer to a lower level of care with altered life or limb morbidity and mortality. 3. Multidisciplinary rounds completed. 4. ABCDE bundle addressed. 5. MPOA: Mother
[2019-07-13] MEDS: ENOXAPARIN SODIUM INJ 40 MG/0.4 ML DISP.SYRIN SUBCUT SCH (18:39)
[2019-07-14 04:54] LABS: ABSOLUTE EOSINOPHILS # (AUTO) 0.1 10^3/uL (0.0-0.6); ABSOLUTE LYMPHOCYTES (AUTO) 1.2 10^3/uL (0.5-4.7); ABSOLUTE MONOCYTES (AUTO) 0.4 10^3/uL (0.1-1.4); ABSOLUTE NEUT (AUTO) 2.6 10^3/uL (1.7-8.2); ABSOLUTE RETICS # 0.026 10^6/uL (0.028-0.122); BASOPHILS % (AUTO) 0.5 % (0-2); EOSINOPHILS % (AUTO) 3.3 % (0-6); HEMATOCRIT 39.4 % (37.9-51.0); HEMOGLOBIN 13.9 g/dL (13.5-17.0); LYMPHOCYTES % (AUTO) 26.5 % (13-45); MEAN CORPUSCULAR HEMOGLOBIN 32.2 pg (27.0-33.4); MEAN CORPUSCULAR HGB CONC 35.1 g/dL (32.0-36.0); MEAN CORPUSCULAR VOLUME 92 fl (80-97); PLATELET COUNT 126 10^3/uL (150-450); RED CELL DISTRIBUTION WIDTH 12.9 % (11.5-14.0); SEGMENTED NEUTROPHILS % (AUTO) 60.7 % (42-78); TOTAL CELLS COUNTED % (AUTO) 100 %; WHITE BLOOD COUNT 4.3 10^3/uL (4.0-10.5)
[2019-07-14 05:06] LABS: IRON(TIBC) 40.8 ug/dL (49-181)
[2019-07-14 07:14] LABS: ANION GAP 9 (5-19); BLOOD UREA NITROGEN 5 mg/dL (7-20); CALCIUM 8.7 mg/dL (8.4-10.2); CARBON DIOXIDE 27 mmol/L (22-30); CHLORIDE 105 mmol/L (98-107); GLUCOSE 102 mg/dL (75-110); POTASSIUM 3.4 mmol/L (3.6-5.0)
[2019-07-14] MEDS: ENOXAPARIN SODIUM INJ 40 MG/0.4 ML DISP.SYRIN SUBCUT SCH (11:05)
[2019-07-14 11:12] VITALS: BP 101/55
[2019-07-14] MEDS ORDERED: POTASSIUM CHLORIDE 10 MEQ CAPSULE.ER PO ONE (13:32)
--- NOTE | 2019-07-14 13:48 | PDOC CRITICAL CARE PROG REPORT ---
General Date:: 07/14/19 ICU Day:: 3 Ventilator Day:: 0 Hospital Day:: 3 Events in the past 12 to 24 Hours:: 07.14.19: Patient remains asymptomatic and has had no diarrhea for 24 hours. Has had no further abdominal discomfort nausea or vomiting. All culture data are negative and he remains off antibiotics, afebrile and hemodynamically stable. 07.13.19: Hypotension has resolved. Significant diarrhea yesterday with gastric distension and borborygmus--all of which have improved. No fever, chills or rigors. Blood cultures negative Review of systems relevant to events:: No pharyngitis, chest pain, fever, abdominal pain. Diarrhea much improved. No melena or hematochezia. Review of systems relevant to events:: Patient denies headache sore throat abdominal pain. He was able to ambulate around the ICU without any syncope or difficulty in gait. Denies any significant weight loss or weight gain and states that he is always thin and pale. Work-up for anemia was unrevealing for any significant findings except for mild iron decrease and low reticulocytes. Ferritin was normal Reason for ICU Addmission:: Septic Shock - Medications: Medications reviewed and adjusted accordingly: Yes Vasopressors:: Discontinued Sedation:: None Physical Exam Vital Signs: Temp Pulse Resp BP Pulse Ox 98.4 F 78 16 96/53 L 96 07/13/19 23:47 07/14/19 00:00 07/14/19 06:33 07/14/19 06:33 07/14/19 06:33 Intake & Output 07/13/19 07/14/19 07/15/19 06:59 06:59 06:59 Intake Total 3238 1810 Output Total 1400 5980 Balance 1838 -4170 Weight 55.3 kg 52.6 kg Weight/Height Weight 52.6 kg Height 5 ft 8 in General appearance: PRESENT: no acute distress, cooperative, thin Exam: Thin pale nontoxic 29-year-old male with flat affect Head exam: PRESENT: atraumatic, normocephalic Eye exam: PRESENT: conjunctiva pink, EOMI, PERRLA. ABSENT: conjunctival injection, scleral icterus Ear exam: PRESENT: normal external ear exam Mouth exam: PRESENT: moist, neck supple, tongue midline Teeth exam: PRESENT: dental caries Throat exam: ABSENT: post pharyngeal erythema, tonsillar erythema Neck exam: PRESENT: full ROM. ABSENT: carotid bruit, JVD, lymphadenopathy, tenderness, thyromegaly, tracheal deviation Respiratory exam: PRESENT: clear to auscultation kerri, unlabored. ABSENT: rales, rhonchi, wheezes Cardiovascular exam: PRESENT: RRR, +S1, +S2. ABSENT: diastolic murmur, gallop, systolic murmur Pulses: PRESENT: normal dorsalis pedis pul Vascular exam: PRESENT: normal capillary refill. ABSENT: pallor GI/Abdominal exam: PRESENT: normal bowel sounds, soft. ABSENT: ascites, distended, guarding, mass, organolmegaly, rebound, tenderness Rectal exam: PRESENT: deferred Gentrourinary exam: ABSENT: scrotal swelling Extremities exam: ABSENT: pedal edema, tenderness Musculoskeletal exam: PRESENT: ambulatory, normal inspection. ABSENT: deformity, dislocation Neurological exam: PRESENT: alert, awake, oriented to person, oriented to place, oriented to time, oriented to situation, CN II-XII grossly intact. ABSENT: motor sensory deficit Psychiatric exam: PRESENT: flat affect, normal mood. ABSENT: manic Focused psych exam: ABSENT: pressured speech, psychomotor agitation, restlessness Skin exam: PRESENT: dry, normal color, warm. ABSENT: cyanosis, mottled, pallor, petechiae, rash Additional comments: Has Psoriatic plaques on dorsal arm surfaces. No erythema, no discharge, Tubes/Lines: ABSENT: Endotracheal Tube, Chest Tube, Central Line, Arterial Catheter, Dialysis catheter, Peg Tube, Nasogastic Tube, Other Laboratory/Radiographs Laboratory Results: 07/14/19 04:00 07/14/19 04:00 07/12/19 07/13/19 07/14/19 00:20 00:20 04:00 WBC RBC Hgb Hct MCV MCH MCHC RDW Plt Count Seg Neutrophils % Retic Count (auto) Sodium Potassium Chloride Carbon Dioxide Anion Gap BUN Creatinine Est GFR ( Amer) Glucose Calcium Phosphorus 3.0 Magnesium 1.9 Iron 40.8 L TIBC 198 L % Saturation 21 Ferritin 254.00 Vitamin B12 676.0 Folate 11.70 Stool for White Cells NO WBCs SEEN 07/14/19 07/14/19 04:00 04:00 WBC 4.3 RBC 4.30 L Hgb 13.9 Hct 39.4 MCV 92 MCH 32.2 MCHC 35.1 RDW 12.9 Plt Count 126 L Seg Neutrophils % 60.7 Retic Count (auto) 0.60 L Sodium 140.7 Potassium 3.4 L Chloride 105 Carbon Dioxide 27 Anion Gap 9 BUN 5 L Creatinine 0.57 Est GFR ( Amer) > 60 Glucose 102 Calcium 8.7 Phosphorus Magnesium Iron TIBC % Saturation Ferritin Vitamin B12 Folate Stool for White Cells Impressions: Chest X-Ray 07/13/19 06:00 IMPRESSION: No acute cardiopulmonary process. All labs, radiographs, diagnostic studies and EKGs were personally reviewed: Yes In addition, reports of radiographic and diagnostic studies were read: Yes Assessment and Plan - Diagnosis (1) Shock, septic Is this a current diagnosis for this admission?: Yes Plan: Resolved. Suspect viral gastroenteritis with dehydration. Continue supportive care (2) Viral gastroenteritis Is this a current diagnosis for this admission?: Yes Plan: Improved. Continue supportive care (3) Lactic acidosis Is this a current diagnosis for this admission?: Yes Plan: Resolved, treated. Continue supportive care (4) Diarrhea Qualifiers: Diarrhea type: unspecified type Qualified Code(s): R19.7 - Diarrhea, unspecified Is this a current diagnosis for this admission?: Yes Plan: Improved. Suspect viral enteritis. Continue supportive care (5) Dehydration determined by examination Is this a current diagnosis for this admission?: Yes Plan: Resolved. (6) Psoriasis Is this a current diagnosis for this admission?: Yes (7) Anemia Qualifiers: Anemia type: unspecified type Qualified Code(s): D64.9 - Anemia, unspecified Is this a current diagnosis for this admission?: Yes Plan: Workup shows no specific etiology. Reticulocyte count low. H/H improved. No active issues. Follow supportively. Suspect viral related? Plan Summary: 07.14.19: Patient has steadily improved and is suitable for discharge. He was originally downgraded yesterday however there are no beds to facilitate this in the last 24 hours. Is anxious to go home and notably, his dad, who is a patient in this ICU, is going to a nursing facility under hospice care. Patient has assured me that he is well enough to go home and he has proven this objectively by being able to walk around the ICU without difficulty. Have replaced his potassium. He is scheduled to follow-up with a primary care physician, Seda, the first week of July. We have also instructed him to return to the emergency room if any of his symptoms recrudesce. See instructions for follow-up care 07.13.19: Patient has been improving steadily and consistently. His diarrhea has imp roved. He did endorse a significant amount of bowel borborygmus and diarrhea yesterday but all of this has essentially resolved. Have asked for patient to ambulate and will follow his conditioning after being ill. Patient has anemia after his resuscitation. This may be related to volume however B12, folate and iron profile has been done. Of note his MCV is normal. He is quite thin with a BMI of 18. He presented with a lower BMI and his weight has increased with the fluid that we have given him. He is tolerating diet and we will advance this as well. To be noted that the patient and other family members have had similar illness. Have discontinued antibiotics and will be vigilant to watch for any recrudescent illness. I felt this was necessary given the lack of culture positivity and di arrhea. Obviously C. difficile and other stool studies are negative. Still awaiting ova and parasite studies. 19: Patient seen in follow-up after admission for hypotension, tachycardia, and lactic acidosis noticed with sepsis and shock. From a mental status standpoint he is not encephalopathic and is at his baseline mental status. His lactic acidosis has resolved. He is making urine and has had no evidence for acute renal failure. Repeat ABG shows solve of alkalosis in the first ABG may have been spurious. His blood pressure is still low normal and he is been given an additional dose of albumin with overall improvement. No source has been found but the expectation is that he will have gram-positive bacteremia. Patient has significant crisis however none of his lesions appear to be erythematous or infected. No other source has been determined. On examination patient has no spinous process tenderness. No sinus discharge, no pharyngeal erythema. No evidence for nuchal rigidity or meningismus. Heart shows regular rate and rhythm no audible murmur or gallops. Lungs are clear to auscultation. Abdomen is soft nontender nondistended no distinct tenderness no masses no organomegaly. Skin shows moderate psoriatic plaques on the dorsal surfaces of the forearms. No erythema discharge. There is no mottling discoloration rashes or mottling. Pulses are 2+/2+ in both the upper and lower extremities. Neurologic shows no encephalopathy. Patient has quiet flat affect. Fouzia Coma Scale is 15 Patient is on broad-spectrum antibiotics including vancomycin Critical Time Critical Time (minutes): 0 - 64194 Level of Care: MEDICAL Anticipated discharge: Home Within: Other - today -: 1. The care of a critical patient is a dynamic process. This note is a pharmaceutical specialty representative synopsis but static in nature. The timeframe for treatments given in order is not necessary the actual time these treatments may have been done. 2. This patient requires critical care secondary to ongoing requirements for therapy not offered or safe outside the critical care environment. Transfer to a lower level of care with altered life or limb morbidity and mortality. 3. Multidisciplinary rounds completed. 4. ABCDE bundle addressed.
--- NOTE | 2019-07-14 14:00 | PDOC DISCHARGE SUMMARY ---
Impression - Admit/DC Date/PCP Admission Date/Primary Care Provider: 07/11/19 23:42 Kermit--New Discharge Date: 07/14/19 - Discharge Diagnosis (1) Shock, septic Is this a current diagnosis for this admission?: Yes (2) Viral gastroenteritis Is this a current diagnosis for this admission?: Yes (3) Lactic acidosis Is this a current diagnosis for this admission?: Yes (4) Diarrhea Is this a current diagnosis for this admission?: Yes (5) Dehydration determined by examination Is this a current diagnosis for this admission?: Yes (6) Psoriasis Is this a current diagnosis for this admission?: Yes (7) Anemia Is this a current diagnosis for this admission?: Yes - Assessment Summary: Patient admitted to the ICU with hypotension tachycardia consistent with sepsis. He has a history of psoriasis and the concern was for bacteremia given his symptomatology. While in the ICU he developed significant diarrhea and poor borborygmus consistent with what appeared to be a gastroenteritis. This resulted in dehydration. He received volume and electrolyte replacement. 24 hours after admission he was able to be downgraded to medical floor status however was unable to be transferred from his ICU bed secondary to lack of bed availability on the medical floor. On day of discharge he was at his baseline. He did receive some electrolyte replacement. He was anxious to go home because his father is being transferred to a facility for palliative and hospice care as well. His request was reasonable and we assured his safety by evaluating his gait and ability to ambulate. In addition, his mother is a nurse and he lives with her. - Additional Information Resuscitation Status: Full Code Discharge Diet: As Tolerated Discharge Activity: Balance Activity w/Rest, No Driving - For 3 days, Slowly Increase Activity, Weigh Daily Referrals: VALERIE FOWLER MD [ACTIVE STAFF] - 07/25/19 10:45 am (FOLLOW-UP: APPOINTMENT MADE FOR 07-25-19 @ 9517 PLEASE ADVISE PATIENT TO ARRIVE 15 MINUTES EARLY AND BRING ANY MEDICATIONS THEY ARE ON PLUS THE DISCHARGE INFORMATION FROM [facility]. ) Home Medications: Glucosamine Sulfate Dipot Chlr [Glucosamine] 1,000 mg PO DAILY 07/12/19 Multivitamin [Multiple Vitamins] 1 tab PO DAILY 07/12/19 History of Present Illiness History of Present Illness: SUMIT MALLORY is a 29 year old male's father was recently admitted the ICU. Several family members have been ill with a viral gastroenteritis. He presented with weakness and tachycardia with dehydration. Has history only of psoriasis. He presented to the ED with nausea vomiting and general malaise. Patient was found to be hypotensive with a lactate of 6.4 and HCO3 of 19. He was also febrile to 102 and mildly tachycardic. While in the emergency department, he received normal saline as well as norepinephrine but remained hypotensive. Upon transfer to the intensive care unit, patient's blood pressure began to improve slightly and now has a MAP of 67. Earlier, in the ED, he is stated that he felt short of breath but has had no difficulty breathing and has required no supplemental oxygen. X-ray shows no infiltrates and breath sounds clear. Hospital Course Hospital Course: Patient remains asymptomatic and has had no diarrhea for 24 hours. Has had no further abdominal discomfort nausea or vomiting. All culture data are negative and he remains off antibiotics, afebrile and hemodynamically stable. 19: Hypotension has resolved. Significant diarrhea yesterday with gastric distension and borborygmus--all of which have improved. No fever, chills or rigors. Blood cultures negative Review of systems relevant to events:: No pharyngitis, chest pain, fever, abdominal pain. Diarrhea much improved. No melena or hematochezia. Review of systems relevant to events:: Patient denies headache sore throat abdominal pain. He was able to ambulate around the ICU without any syncope or difficulty in gait. Denies any significant weight loss or weight gain and states that he is always thin and pale. Work-up for anemia was unrevealing for any significant findings except for mild iron decrease and low reticulocytes. Ferritin was normal 07.14.19: Patient has steadily improved and is suitable for discharge. He was originally downgraded yesterday however there are no beds to facilitate this in the last 24 hours. Is anxious to go home and notably, his dad, who is a patient in this ICU, is going to a nursing facility under hospice care. Patient has assured me that he is well enough to go home and he has proven this objectively by being able to walk around the ICU without difficulty. Have replaced his potassium. He is scheduled to follow-up with a primary care physician, Seda, the first week of July. We have also instructed him to return to the emergency room if any of his symptoms recrudesce. See instructions for follow-up care 07.13.19: Patient has been improving steadily and consistently. His diarrhea has improved. He did endorse a significant amount of bowel borborygmus and diarrhea yesterday but all of this has essentially resolved. Have asked for patient to ambulate and will follow his conditioning after being ill. Patient has anemia after his resuscitation. This may be related to volume however B12, folate and iron profile has been done. Of note his MCV is normal. He is quite thin with a BMI of 18. He presented with a lower BMI and his weight has increased with the fluid that we have given him. He is tolerating diet and we will advance this as well. To be noted that the patient and other family members have had similar illness. Have discontinued antibiotics and will be vigilant to watch for any recrudescent illness. I felt this was necessary given the lack of culture positivity and diarrhea. Obviously C. difficile and other stool studies are negative. Still awaiting ova and parasite studies. 19: Patient seen in follow-up after admission for hypotension, tachycardia, and lactic acidosis noticed with sepsis and shock. From a mental status standpoint he is not encephalopathic and is at his baseline mental status. His lactic acidosis has resolved. He is making urine and has had no evidence for acute renal failure. Repeat ABG shows solve of alkalosis in the first ABG may have been spurious. His blood pressure is still low normal and he is been given an additional dose of albumin with overall improvement. No source has been found but the expectation is that he will have gram-positive bacteremia. Patient has significant crisis however none of his lesions appear to be erythematous or infected. No other source has been determined. On examination patient has no spinous process tenderness. No sinus discharge, no pharyngeal erythema. No evidence for nuchal rigidity or meningismus. Heart shows regular rate and rhythm no audible murmur or gallops. Lungs are clear to auscultation. Abdomen is soft nontender nondistended no distinct tenderness no masses no organomegaly. Skin shows moderate psoriatic plaques on the dorsal surfaces of the forearms. No erythema discharge. There is no mottling discoloration rashes or mottling. Pulses are 2+/2+ in both the upper and lower extremities. Neurologic shows no encephalopathy. Patient has quiet flat affect. Fouzia Coma Scale is 15 Patient is on broad-spectrum antibiotics including vancomycin Physical Exam Vital Signs: Temp Pulse Resp BP Pulse Ox 98.0 F 76 14 101/55 L 99 07/14/19 13:28 07/14/19 13:28 07/14/19 13:28 07/14/19 13:28 07/14/19 13:28 Intake & Output 07/13/19 07/14/19 07/15/19 06:59 06:59 06:59 Intake Total 3238 1810 1800 Output Total 1400 5920 550 Balance 1838 -4170 1250 Weight 55.3 kg 52.6 kg Exam: See progress notes from today Results Laboratory Results: WBC 4.3 10^3/uL (4.0-10.5) 07/14/19 04:00 RBC 4.30 10^6/uL (4.35-5.55) L 07/14/19 04:00 Hgb 13.9 g/dL (13.5-17.0) 07/14/19 04:00 Hct 39.4 % (37.9-51.0) 07/14/19 04:00 MCV 92 fl (80-97) 07/14/19 04:00 MCH 32.2 pg (27.0-33.4) 07/14/19 04:00 MCHC 35.1 g/dL (32.0-36.0) 07/14/19 04:00 RDW 12.9 % (11.5-14.0) 07/14/19 04:00 Plt Count 126 10^3/uL (150-450) L 07/14/19 04:00 Lymph % (Auto) 26.5 % (13-45) 07/14/19 04:00 [place] % (Auto) 9.0 % (3-13) 07/14/19 04:00 Eos % (Auto) 3.3 % (0-6) 07/14/19 04:00 Baso % (Auto) 0.5 % (0-2) 07/14/19 04:00 Reticulocyte # 0.026 10^6/uL (0.028-0.122) L 07/14/19 04:00 Absolute Neuts (auto) 2.6 10^3/uL (1.7-8.2) 07/14/19 04:00 Absolute Lymphs (auto) 1.2 10^3/uL (0.5-4.7) 07/14/19 04:00 Absolute Monos (auto) 0.4 10^3/uL (0.1-1.4) 07/14/19 04:00 Absolute Eos (auto) 0.1 10^3/uL (0.0-0.6) 07/14/19 04:00 Absolute Basos (auto) 0.0 10^3/uL (0.0-0.2) 07/14/19 04:00 Total Counted 100 07/11/19 20:42 Seg Neutrophils % 60.7 % (42-78) 07/14/19 04:00 Seg Neuts % (Manual) 82 % (42-78) H 07/11/19 20:42 Band Neutrophils % 7 % (3-5) H 07/11/19 20:42 Lymphocytes % (Manual) 5 % (13-45) L 07/11/19 20:42 Atypical Lymphs % 2 % (0) 07/11/19 20:42 Monocytes % (Manual) 4 % (3-13) 07/11/19 20:42 Eosinophils % (Manual) 0 % (0-6) 07/11/19 20:42 Basophils % (Manual) 0 % (0-2) 07/11/19 20:42 Abs Neuts (Manual) 7.7 10^3/uL (1.7-8.2) 07/11/19 20:42 Abs Lymphs (Manual) 0.6 10^3/uL (0.5-4.7) 07/11/19 20:42 Abs Monocytes (Manual) 0.3 10^3/uL (0.1-1.4) 07/11/19 20:42 Absolute Eos (Manual) 0.0 10^3/uL (0.0-0.6) 07/11/19 20:42 Abs Basophils (Manual) 0.0 10^3/uL (0.0-0.2) 07/11/19 20:42 Platelet Comment ADEQUATE 07/11/19 20:42 RBC Morph Comment NORMO-CYTIC/CHROMIC 07/11/19 20:42 Retic Count (auto) 0.60 % (0.66-2.85) L 07/14/19 04:00 PT 15.8 SEC (11.4-15.4) H 07/13/19 04:13 INR 1.25 07/13/19 04:13 APTT 35.0 SEC (23.5-35.8) 07/13/19 04:13 Carbonic Acid 1.13 mmol/L (1.05-1.35) 07/12/19 10:40 HCO3/H2CO3 Ratio 19:1 07/12/19 10:40 ABG pH 7.40 (7.35-7.45) 07/12/19 10:40 ABG pCO2 37.5 mmHg (35-45) 07/12/19 10:40 ABG pO2 108.3 mmHg (80-100) H 07/12/19 10:40 ABG HCO3 22.5 mmol/L (20-24) 07/12/19 10:40 ABG Total CO2 23.7 mmol/L (23-27) 07/12/19 10:40 ABG O2 Saturation 98.0 % (94-98) 07/12/19 10:40 ABG Base Excess -2.0 mmol/L 07/12/19 10:40 VBG pH 7.63 (7.30-7.42) H 07/11/19 21:40 VBG pCO2 18.3 mmHg (35-63) L* 07/11/19 21:40 VBG HCO3 18.7 mmol/L (20-32) L 07/11/19 21:40 VBG Base Excess 0.6 mmol/L 07/11/19 21:40 FiO2 ROOM AIR 07/12/19 10:40 Sodium 140.7 mmol/L (137-145) 07/14/19 04:00 Potassium 3.4 mmol/L (3.6-5.0) L 07/14/19 04:00 Chloride 105 mmol/L (98-107) 07/14/19 04:00 Carbon Dioxide 27 mmol/L (22-30) 07/14/19 04:00 Anion Gap 9 (5-19) 07/14/19 04:00 BUN 5 mg/dL (7-20) L 07/14/19 04:00 Creatinine 0.57 mg/dL (0.52-1.25) 07/14/19 04:00 Est GFR ( Amer) > 60 (>60) 07/14/19 04:00 Est GFR (MDRD) Non-Af > 60 (>60) 07/14/19 04:00 Glucose 102 mg/dL (75-110) 07/14/19 04:00 POC Glucose 99 mg/dL (70-110) 07/11/19 20:53 Lactic Acid (Sepsis) 2.0 mmol/L (0.7-2.1) 07/12/19 01:39 Calcium 8.7 mg/dL (8.4-10.2) 07/14/19 04:00 Phosphorus 3.0 mg/dL (2.5-4.5) 07/14/19 04:00 Magnesium 1.9 mg/dL (1.6-2.3) 07/14/19 04:00 Iron 40.8 ug/dL (49-181) L 07/14/19 04:00 TIBC 198 ug/dL (250-450) L 07/14/19 04:00 % Saturation 21 % 07/14/19 04:00 Ferritin 254.00 ng/mL (17.9-464.0) 07/14/19 04:00 Total Bilirubin 0.7 mg/dL (0.2-1.3) 07/13/19 04:13 Direct Bilirubin 0.1 mg/dL (0.0-0.4) 07/13/19 04:13 Neonat Total Bilirubin Not Reportable 07/13/19 04:13 Neonat Direct Bilirubin Not Reportable 07/13/19 04:13 Neonat Indirect Bili Not Reportable 07/13/19 04:13 AST 39 U/L (17-59) 07/13/19 04:13 ALT 16 U/L (<50) 07/13/19 04:13 Alkaline Phosphatase 39 U/L (38-126) 07/13/19 04:13 Ammonia < 8.7 umol/L (9-33) L 07/13/19 04:13 Total Protein 5.0 g/dL (6.3-8.2) L 07/13/19 04:13 Albumin 2.8 g/dL (3.5-5.0) L 07/13/19 04:13 Amylase 36 U/L (30-110) 07/12/19 13:03 Lipase 46.0 U/L (23-300) 07/12/19 13:03 Vitamin B12 676.0 pg/mL (239-931) 07/14/19 04:00 Folate 11.70 ng/mL (>2.76) 07/14/19 04:00 Random Cortisol 58.90 ug/dL (None Established) 07/11/19 20:53 Urine Color YELLOW 07/11/19 23:30 Urine Appearance SLIGHTLY-CLOUDY 07/11/19 23:30 Urine pH 5.0 (5.0-9.0) 07/11/19 23:30 Ur Specific [place] 1.021 07/11/19 23:30 Urine Protein NEGATIVE mg/dL (NEGATIVE) 07/11/19 23:30 Urine Glucose (UA) NEGATIVE mg/dL (NEGATIVE) 07/11/19 23:30 Urine Ketones 80 mg/dL (NEGATIVE) H 07/11/19 23:30 Urine Blood NEGATIVE (NEGATIVE) 07/11/19 23:30 Urine Nitrite NEGATIVE (NEGATIVE) 07/11/19 23:30 Urine Bilirubin NEGATIVE (NEGATIVE) 07/11/19 23:30 Urine Urobilinogen NEGATIVE mg/dL (<2.0) 07/11/19 23:30 Ur Leukocyte Esterase NEGATIVE (NEGATIVE) 07/11/19 23:30 Urine WBC (Auto) 1 /HPF 07/11/19 23:30 Urine RBC (Auto) 0 /HPF 07/11/19 23:30 U Hyaline Cast (Auto) 9 /LPF 07/11/19 23:30 Squamous Epi Cells Auto <1 /HPF 07/11/19 23:30 Urine Mucus (Auto) FEW /LPF 07/11/19 23:30 Urine Ascorbic Acid NEGATIVE (NEGATIVE) 07/11/19 23:30 Stool for White Cells NO WBCs SEEN 07/13/19 00:20 Stl C. Difficile GDH Ag NEGATIVE (NEGATIVE) 07/13/19 00:20 Stl C.difficile Tox A&B NEGATIVE (NEGATIVE) 07/13/19 00:20 Urine Opiates Screen NEGATIVE 07/11/19 23:30 Urine Methadone Screen NEGATIVE 07/11/19 23:30 Ur Barbiturates Screen NEGATIVE 07/11/19 23:30 Ur Phencyclidine Scrn NEGATIVE 07/11/19 23:30 Ur Amphetamines Screen NEGATIVE 07/11/19 23:30 U Benzodiazepines Scrn NEGATIVE 11/18/19 23:30 Urine Cocaine Screen NEGATIVE 07/11/19 23:30 U Marijuana (THC) Screen NEGATIVE 07/11/19 23:30 Influenza A (Rapid) NEGATIVE (NEGATIVE) 07/11/19 20:42 Influenza B (Rapid) NEGATIVE (NEGATIVE) 07/11/19 20:42 Impressions: Chest X-Ray 07/11/19 20:15 IMPRESSION: No acute disease. copyright 2010 [employer]- All Rights Reserved Chest X-Ray 07/13/19 06:00 IMPRESSION: No acute cardiopulmonary process. Plan Health Concerns: Mild anemia Chronic underweight syndrome Plan of Treatment: Home rest Electrolyte drinks No work until July 18, 2019 Follow up with new provider, Dr. Mendez Critical Time: 38 Level of Care: MEDICAL Stroke Is this a Stroke Patient?: No Acute Heart Failure - Is this a Heart Failure Patient?: No
== END 2019-07-14 13:53 | disposition home or self-care (01) | DRG 871 ==
LOC: ER 19:34 → EH 23:42 → ICU 07-12 00:36
PROVIDERS: ADMIT Internal Medicine Critical Care Medicine; ATTEND Internal Medicine Critical Care Medicine
DX: A41.9 Sepsis, unspecified organism (principal); R65.21 Severe sepsis with septic shock; E44.0 Moderate protein-calorie malnutrition; E87.2 Acidosis; Z68.1 Body mass index [BMI] 19.9 or less, adult; A08.4 Viral intestinal infection, unspecified; E86.0 Dehydration; D64.9 Anemia, unspecified; L40.9 Psoriasis, unspecified
CPT/HCPCS: 36415; 71045; 71046; 80048; 80053; 80307; 81001; 82140; 82150; 82533; 82607; 82728; 82746; 82803; 82962; 83540; 83550; 83605; 83690; 83735; 84100; 85025; 85045; 85610; 85730; 87040; 87077; 87177; 87324; 87449; 87804; 89055; 93005; 93010; 96361; 96365; 96368; 96375; 99291; 99292; J1644; J1650; J2405; J2543; J2765; J3370; J3475; J3490; J7030; J7040; J7060; J7120; P9041; S0119

== ENCOUNTER → 2019-07-26 | Outpatient (CLI) | payer BC ==
[2019-07-26 09:23] LABS: ABSOLUTE BASOPHILS # (AUTO) 0.1 10^3/uL (0.0-0.2); ABSOLUTE EOSINOPHILS # (AUTO) 0.1 10^3/uL (0.0-0.6); ABSOLUTE LYMPHOCYTES (AUTO) 1.8 10^3/uL (0.5-4.7); ABSOLUTE MONOCYTES (AUTO) 0.4 10^3/uL (0.1-1.4); ABSOLUTE NEUT (AUTO) 2.8 10^3/uL (1.7-8.2); BASOPHILS % (AUTO) 1.2 % (0-2); EOSINOPHILS % (AUTO) 2.6 % (0-6); HEMATOCRIT 43.7 % (37.9-51.0); HEMOGLOBIN 14.7 g/dL (13.5-17.0); LYMPHOCYTES % (AUTO) 34.1 % (13-45); MEAN CORPUSCULAR HEMOGLOBIN 31.9 pg (27.0-33.4); MEAN CORPUSCULAR HGB CONC 33.6 g/dL (32.0-36.0); MEAN CORPUSCULAR VOLUME 95 fl (80-97); MONOCYTES % (AUTO) 8.4 % (3-13); PLATELET COUNT 244 10^3/uL (150-450); RED CELL DISTRIBUTION WIDTH 13.2 % (11.5-14.0); SEGMENTED NEUTROPHILS % (AUTO) 53.7 % (42-78); TOTAL CELLS COUNTED % (AUTO) 100 %; WHITE BLOOD COUNT 5.3 10^3/uL (4.0-10.5)
[2019-07-26 09:49] LABS: ALBUMIN 4.3 g/dL (3.5-5.0); ALKALINE PHOSPHATASE 60 U/L (38-126); ANION GAP 7 (5-19); ASPARTATE AMINO TRANSFERASE 36 U/L (17-59); BILIRUBIN,DIRECT 0.1 mg/dL (0.0-0.4); BILIRUBIN,TOTAL 0.5 mg/dL (0.2-1.3); BLOOD UREA NITROGEN 17 mg/dL (7-20); CALCIUM 9.7 mg/dL (8.4-10.2); CARBON DIOXIDE 29 mmol/L (22-30); CHLORIDE 100 mmol/L (98-107); GLUCOSE 87 mg/dL (75-110); POTASSIUM 4.7 mmol/L (3.6-5.0); TOTAL PROTEIN 6.9 g/dL (6.3-8.2)
== END ==
LOC: OD 08:28
PROVIDERS: ATTEND Internal Medicine
DX: E86.0 Dehydration (principal)
CPT/HCPCS: 36415; 80053; 83735; 85025

== ENCOUNTER → 2019-09-06 | Outpatient (CLI) | payer BC ==
[2019-09-06 12:15] LABS: ALBUMIN 4.6 g/dL (3.5-5.0); ALKALINE PHOSPHATASE 48 U/L (38-126); ASPARTATE AMINO TRANSFERASE 34 U/L (17-59); BILIRUBIN,DIRECT 0.2 mg/dL (0.0-0.4); BILIRUBIN,TOTAL 0.5 mg/dL (0.2-1.3); TOTAL PROTEIN 7.3 g/dL (6.3-8.2)
== END ==
LOC: OD 10:59
PROVIDERS: ATTEND Internal Medicine
DX: R94.5 Abnormal results of liver function studies (principal)
CPT/HCPCS: 36415; 80076